=== PATIENT | male | born 1935 | race Caucasian/White ===

== ENCOUNTER 2022-05-04 17:59 | Emergency (ER) | payer OTHER ==
[2022-05-04 18:30] LABS: Absolute Lymphocytes (CBC) 1.6 K/uL (0.7-4.9); Hematocrit 31.1 % (39.6-49.0); Lymphocytes % 17.1 % (15.3-44.8); MPV 6.8 fL (7.6-11.3); RBC Red Blood Cell Count 3.28 M/uL (4.33-5.43)
[2022-05-04 18:41] LABS: Potassium 4.1 mmol/L (3.5-5.1)
[2022-05-04 18:45] LABS: Urine Blood Negative (Negative); Urine Glucose Negative (Negative); Urine Protein 1+ (Negative); Urine Specific Gravity 1.015 (1.005-1.030); Urine pH 5.5 (5.0-7.0)
[2022-05-04 18:59] LABS: Urine Bacteria None Seen /HPF (<20); Urine RBC <5 /HPF (None Seen)
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
[2022-05-04 20:06] LABS: Protime INR 1.02
[2022-05-04 20:13] LABS: Barbiturates NEGATIVE (NEGATIVE); Benzodiazepines NEGATIVE (NEGATIVE); Cocaine NEGATIVE (NEGATIVE); METHAMPHETAM NEGATIVE (NEGATIVE); Methadone NEGATIVE (NEGATIVE); Opiates NEGATIVE (NEGATIVE); Phencyclidine NEGATIVE (NEGATIVE); THC Cannibis NEGATIVE (NEGATIVE)
[2022-05-04] MEDS ORDERED: DIAZEPAM 10 MG/2 ML INJ SYRINGE ONE (20:19)
[2022-05-04 20:23] LABS: SARS-CoV-2 Antigen Rapid Res Negative (Negative)
--- NOTE | 2022-05-04 20:28 | RAD REPORT ---
EXAM DESCRIPTION: Ale Single View05/04/2022 7:48 pm CLINICAL HISTORY: Chest pain COMPARISON: none FINDINGS: The lungs appear clear of acute infiltrate. The heart is normal size IMPRESSION: No acute abnormalities displayed
[2022-05-04 20:34] LABS: ALT/SGPT 51 U/L (12-78); AST/SGOT 39 U/L (15-37); Albumin 3.7 g/dL (3.4-5.0); Alkaline Phosphatase 68 U/L (45-117); Bilirubin Direct < 0.1 mg/dL (0-0.2); Bilirubin Total 0.3 mg/dL (0.2-1.0); Protein, Total 7.5 g/dL (6.4-8.2); Troponin High Sensitivity 9.8 pg/mL (<58.9)
[2022-05-04] MEDS ORDERED: WATER FOR INJ,STERILE 10 ML ONE (20:59)
[2022-05-04] MEDS ORDERED: ZIPRASIDONE MESYLA 20 MG/VIAL IM ONE (20:59)
--- NOTE | 2022-05-05 08:16 | RAD REPORT ---
EXAM DESCRIPTION: CT - Head Brain Wo Cont - 05/05/2022 6:57 am CLINICAL HISTORY: Mental status change, unknown cause Headache, drowsiness COMPARISON: No comparisons TECHNIQUE: All CT scans are performed using dose optimization technique as appropriate and may inclu de automated exposure control or mA/KV adjustment according to patient size. FINDINGS: No intracranial hemorrhage, hydrocephalus or extra-axial fluid collection.Moderate diffuse brain atrophy.No areas of brain edema or evidence of midline shift. The paranasal sinuses and mastoids are clear. The calvarium is intact. IMPRESSION: No acute intracranial abnormality. Moderate diffuse brain atrophy.
[2022-05-05 10:59] VITALS: BP 129/81; TEMP 98.6; O2SAT 96
== END 2022-05-05 10:47 ==
LOC: ER 17:59
DX: F03.91 Unspecified dementia, unspecified severity, with behavioral disturbance (principal); R44.3 Hallucinations, unspecified
CPT/HCPCS: 85025; 80048; 36415; 80320; 82140; 80329 ×2; 85610; 80076; 85730; 84443; 84484; 84439; 80307; 87804 ×2; 70450; 71045; 87811; J3360; J3486; 81003; 81015